=== PATIENT | female | born 1955 | race Caucasian/White ===

== ENCOUNTER 2022-03-22 22:27 | Emergency (ER) | payer MEDICARE, OTHER, SELFPAY ==
[2022-03-22 22:36] VITALS: BP 155/96; PULSE 83; RESP 18; TEMP 37.2; O2SAT 97; BMI 32.6
--- NOTE | 2022-03-22 23:45 | ED_ITS ---
HPI - General Adult General Chief complaint: Cough Stated complaint: Cough Time Seen by Provider: 03/22/22 23:36 History of Present Illness HPI narrative: This 66-year-old female comes in reporting persistent cough symptoms for the past 4 days. She did take 2 COVID tests at home and both returned with negative results. She comes in simply requesting something to help control her cough could she did not sleep much at all last night because of persistent coughing. She states that she does not tolerate some [id number] medicines for antihistamine treatment. She also states that she does not tolerate guaifenesin in Robitussin. She states she is a retired nurse. She does not report any shortness of breath or fevers. Related Data Home Medications Medication Instructions Recorded Confirmed albuterol sulfate 90 mcg/actuation inhalation 03/22/22 aerosol inhaler flecainide 50 mg tablet 50 mg PO Q12H 03/22/22 03/22/22 gabapentin 100 mg capsule 200 mg PO Q12H 03/22/22 03/22/22 lisinopril 5 mg tablet 5 mg PO DAILY 03/22/22 03/22/22 omeprazole 40 mg capsule,delayed 40 mg PO 03/22/22 release Allergies Allergy/AdvReac Type Severity Reaction Status Date / Time Antihistamines - Alkylamine Allergy Mild Hypertensio Verified 03/22/22 22:50 n Cephalosporins Allergy Mild Rash Verified 03/22/22 22:50 dial Allergy Mild Verified 03/22/22 22:50 duloxetine [From Cymbalta] Allergy Mild Rash Verified 03/22/22 22:50 Sulfa (Sulfonamide Allergy Mild purple rash Verified 03/22/22 22:50 Antibiotics) tetanus and diphtheria Allergy Mild Verified 03/22/22 22:50 toxoids Penicillins Allergy Unknown Verified 03/22/22 22:50 vicoden Allergy Mild hyperactive Uncoded 03/22/22 22:50 Review of Systems Status of ROS: Reports: 10 or more systems reviewed and unremarkable except as noted in History and below Narrative: Constitutional: No fevers, no weight gain or loss. Eyes: No discharge. No vision changes. HENT: No sore throat, no ear pain. Nasal congestion. She had some vertigo symptoms this morning. Cardiovascular: No chest pain, no palpitations. Respiratory: No shortness of breath, no wheezes. Frequent usually nonproductive cough. Gastrointestinal: No abdominal pain, no vomiting, no diarrhea. Genitourinary: No dysuria, no hematuria. Musculoskeletal: Normal range of motion. Skin: No rashes, no pruritis. Neurological: No weakness, sensory change, speech change. Endo/Heme/Allergies: No bruising or bleeding. No polydipsia. Pysch: no suicidality, no anxiety, no insomnia. All other systems reviewed and are negative. [facility] Medical History (Updated 03/22/22 @ 23:49 by Jd Crenshaw MD) Arrhythmia Fibromyalgia Gall stone GERD (gastroesophageal reflux disease) Hypertension Hypothyroid Non-Hodgkin lymphoma Social History Smoking Status: Former smoker What tobacco products do you use: cigarettes Smoking quit date/years: >15 years ago Do you use any of these nicotine containing products: None Second hand tobacco smoke exposure: No How often do you have a drink containing alcohol: 2-3 times a week How many standard drinks containing alcohol do you have on a typical day: 1 or 2 How often do you have six or more drinks on one occasion: Weekly AUDIT-C Alcohol total score: 6 Non-prescribed substance use: denies use service: No Exam Narrative: Exam Narrative: Constitutional: Well-developed, well-nourished, no acute distress. HEENT: Normocephalic, atraumatic. Neck: Normal range of motion. Nontender. Supple. Heart: Regular. No murmurs. Normal rate. Intact distal pulses. Lungs: Clear to auscultation. No chest discomfort. No wheezes, rhonchi, or rales. Frequent coughing. Abdomen: Normal bowel sounds. Nontender. No rebound tenderness. Genitalia: Deferred. Back: No midline tenderness. Normal range of motion. Extremities: Normal range of motion. No injury. Skin: Intact. No rash. Warm. No erythema or pallor. Neurologic: No altered sensation. No weakness. Alert and oriented. Psychiatric: No suicidality. No anxiety or depression. No insomnia. Nursing notes and vitals signs are reviewed. Const: Vital Signs, click to edit/add: Vital Signs - 24 hr 03/22/22 22:36 Temperature 99.0 F Pulse Rate [Right Pulse Oximeter] 83 Respiratory Rate 18 Blood Pressure [Ri ght Upper Arm] 155/96 H Pulse Oximetry 97 Oxygen Delivery Me thod Room Air Course Vital Signs Vital signs: Initial Vital Signs Temperature 99.0 F 03/22/22 22:36 Temperature Source Temporal Artery Scan 03/22/22 22:36 Pulse Rate 83 03/22/22 22:36 Respiratory Rate 18 03/22/22 22:36 Blood Pressure 155/96 H 03/22/22 22:36 Blood Pressure Mean 115 03/22/22 22:36 Blood Pressure Position Sitting 03/22/22 22:36 Pulse Oximetry 97 03/22/22 22:36 Oxygen Delivery Method 03/22/22 22:36 Vital Signs Temperature 99.0 F 03/22/22 22:36 Pulse Rate 83 03/22/22 22:36 Respiratory Rate 18 03/22/22 22:36 Blood Pressure 155/96 H 03/22/22 22:36 Pulse Oximetry 97 03/22/22 22:36 Oxygen Delivery Method 03/22/22 22:36 Temperature 99.0 F 03/22/22 22:36 Pulse Rate 83 03/22/22 22:36 Respiratory Rate 18 03/22/22 22:36 Blood Pressure 155/96 H 03/22/22 22:36 Pulse Oximetry 97 03/22/22 22:36 Oxygen Delivery Method 03/22/22 22:36 Medical Decision Making MDM Narrative Medical decision making narrative: This patient comes in seeking some better relief of her cough symptoms. She declined any need for further testing at this time. Her exam actually is rather normal as are her vital signs. She did receive [facility] prescriptions for Tylenol 3 and Toradol. Discharge Plan Discharge Clinical Impression: Acute upper respiratory infection Additional Instructions: Use medications as needed and directed. Follow up with MD or return if worsening symptoms happen. Prescriptions: No Action omeprazole 40 mg capsule,delayed release(DR/EC) 40 mg PO flecainide 50 mg tablet 50 mg PO Q12H lisinopril 5 mg tablet 5 mg PO DAILY gabapentin 100 mg capsule 200 mg PO Q12H albuterol sulfate 90 mcg/actuation HFA aerosol inhaler INHALATION Stand Alone Forms: [facility] Info Instructions
== END 2022-03-23 00:02 | disposition home or self-care (01) ==
LOC: ED 03-23 00:01
PROVIDERS: Emergency Provider Emergency Medicine Emergency Medical Services
DX: J06.9 Acute upper respiratory infection, unspecified (principal)
CPT/HCPCS: 99283; 99284

== ENCOUNTER 2022-04-01 20:18 | Emergency (ER) | payer MEDICARE, OTHER, SELFPAY ==
[2022-04-01 20:26] VITALS: BP 168/89; PULSE 89; RESP 18; TEMP 36.6; O2SAT 99; BMI 30.9
--- NOTE | 2022-04-01 20:47 | ED_ITS ---
HPI - General Adult General Chief complaint: Ear/Nose/Throat Problem Stated complaint: Sinus infection Time Seen by Provider: 04/01/22 20:22 History of Present Illness HPI narrative: Pt is a 67 year old woman who comes in with severe bilateral maxillary sinus pressure for 2 weeks duration. Pt was seen her two weeks ago and treated for bronchitis. Her cough is resolved but the sinus pressure and pharyngeal drainage persists. No fever or chills. Pt recently tested negative for COVID. No sick contacts or travel. Pt otherwise feels well. Related Data Home Medications Medication Instructions Recorded Confirmed albuterol sulfate 90 mcg/actuation inhalation 03/22/22 aerosol inhaler flecainide 50 mg tablet 50 mg PO Q12H 03/22/22 03/22/22 gabapentin 100 mg capsule 200 mg PO Q12H 03/22/22 03/22/22 lisinopril 5 mg tablet 5 mg PO DAILY 03/22/22 03/22/22 omeprazole 40 mg capsule,delayed 40 mg PO 03/22/22 release Allergies Allergy/AdvReac Type Severity Reaction Status Date / Time Antihistamines - Alkylamine Allergy Mild Hypertensio Verified 03/22/22 22:50 n Cephalosporins Allergy Mild Rash Verified 03/22/22 22:50 dial Allergy Mild Verified 03/22/22 22:50 duloxetine [From Cymbalta] Allergy Mild Rash Verified 03/22/22 22:50 Sulfa (Sulfonamide Allergy Mild purple rash Verified 03/22/22 22:50 Antibiotics) tetanus and diphtheria Allergy Mild Verified 03/22/22 22:50 toxoids Penicillins Allergy Unknown Verified 03/22/22 22:50 vicoden Allergy Mild hyperactive Uncoded 03/22/22 22:50 Review of Systems Status of ROS: Reports: 10 or more systems reviewed and unremarkable except as noted in History and below PFSH PFS Medical History Arrhythmia Fibromyalgia Gall stone GERD (gastroesophageal reflux disease) Hypertension Hypothyroid Non-Hodgkin lymphoma Surgical History No significant past surgical history Social History Smoking Status: Former smoker What tobacco products do you use: cigarettes Smoking quit date/years: >15 years ago Do you use any of these nicotine containing products: None Second hand tobacco smoke exposure: No How often do you have a drink containing alcohol: 2-3 times a week How many standard drinks containing alcohol do you have on a typical day: 1 or 2 How often do you have six or more drinks on one occasion: Weekly AUDIT-C Alcohol total score: 6 Non-prescribed substance use: denies use service: No Exam Narrative: Exam Narrative: EXAM GENERAL: Patient appears comfortable and well. EYES: No scleral icterus. ENT: Tympanic membranes and oropharynx normal. THYROID: no thyroid nodules or thyromegaly. LYMPH: No supraclavicular or cervical lymphadenopathy. SKIN: Visible skin seen during exam normal or with benign process only. EXT: No dependent lower extremity pedal edema. HEART: Regular rate and rhythm with no murmurs, rubs, or gallops. LUNGS: Clear to auscultation bilaterally with no crackles or wheezes. ABD: Soft, non tender, non distended. PSYCH: Good eye contact, speech is not pressured. Const: Vital Signs, click to edit/add: Vital Signs - 24 hr 04/01/22 20:26 04/01/22 20:26 Temperature 97.9 F 97.9 F Pulse Rate [Right Pulse Oximeter] 89 89 Respiratory Rate 18 18 Blood Pressure [Ri ght Upper Arm] 168/89 H 168/89 H Pulse Oximetry 99 99 Oxygen Delivery Me thod Room Air Room Air Course Course Hospital Course: Pt seen and examined. Vital Signs Vital signs: Initial Vital Signs Temperature 97.9 F 04/01/22 20:26 Temperature Source Temporal Artery Scan 04/01/22 20:26 Pulse Rate 89 04/01/22 20:26 Respiratory Rate 18 04/01/22 20:26 Blood Pressure 168/89 H 04/01/22 20:26 Blood Pressure Mean 115 04/01/22 20:26 Blood Pressure Position Sitting 04/01/22 20:26 Pulse Oximetry 99 04/01/22 20:26 Oxygen Delivery Method 04/01/22 20:26 Vital Signs Temperature 97.9 F 04/01/22 20:26 Pulse Rate 89 04/01/22 20:26 Respiratory Rate 18 04/01/22 20:26 Blood Pressure 168/89 H 04/01/22 20:26 Pulse Oximetry 99 04/01/22 20:26 Oxygen Delivery Method 04/01/22 20:26 Temperature 97.9 F 04/01/22 20:26 Pulse Rate 89 04/01/22 20:26 Respiratory Rate 18 04/01/22 20:26 Blood Pressure 168/89 H 04/01/22 20:26 Pulse Oximetry 99 04/01/22 20:26 Oxygen Delivery Method 04/01/22 20:26 Medical Decision Making MDM Narrative Medical decision making narrative: Pt presents with classic sinusitis. She does have medical comorbidities which are reviewed. Pt has done well with a Z pack in the past and would like that again. No other findings on exam. Pt treated with Z pack plus Nedipot. Differential Diagnosis Differential Diagnosis: Sinusitis, Bronchitis, Pneumonia, Asthma Discharge Plan Discharge Clinical Impression: Sinusitis Patient Disposition: Home, Self-Care Condition: Stable Additional Instructions: Z pack Nedi pot as directed Follow up with your doctor as needed Activity Level: No Restrictions Discharge Diet: Regular Prescriptions: No Action omeprazole 40 mg capsule,delayed release(DR/EC) 40 mg PO flecainide 50 mg tablet 50 mg PO Q12H lisinopril 5 mg tablet 5 mg PO DAILY gabapentin 100 mg capsule 200 mg PO Q12H albuterol sulfate 90 mcg/actuation HFA aerosol inhaler INHALATION Follow Up/Referrals: Provider,Not a Local [Primary Care Provider] - Stand Alone Forms: [facility] Info Instructions
--- OUTSIDE RECORDS SUMMARY | 2022-04-01 20:51 | XMS_ITS | Encounter Summary ---
:1955 Author Organization [facility] Address [address] [place] [address] Care Team Providers Name Role Phone Elsewhere, Pcp Primary Care Provider Unavailable Encounter Details Date Type Department Care Team Description 03/26/2021 Orders Only [facility] Brandon [place] M.D. [phone] [place] [address] [phone] (Wo rk) Social History Tobacco Use Types Packs/Day Years Used Date Smoking Tobacco: Never Smokeless Tobacco: Never Alcohol Use Standard Drinks/Week Comments Not Currently 0 (1 standard drink = 0.6 oz pure alcoho l) Sex Assigned at Date Recorded Not on file documented as of this encounter Plan of Treatment Not on filedocumented as of this encounter Visit Diagnoses Not on filedocumented in this encounter Care Teams Head Men'S Golf Coach Relationship Specialty Start Date End Date Elsewhere, Pcp PCP - General Family Medicine 01/09/21 documented as of this encounter
--- OUTSIDE RECORDS SUMMARY | 2022-04-01 20:51 | XMS_ITS | Encounter Summary ---
:1955 Author Organization [facility] Address [address] [place] [address] Care Team Providers Name Role Phone Elsewhere, Pcp Primary Care Provider Unavailable Encounter Details Date Type Department Care Team Description 03/01/2022 Orders Only [facility] Mary Owen [place] M.D. [address] [id number] [phone] Social History Tobacco Use Types Packs/Day Years [...] on filedocumented in this encounter Care Teams Implementation Services Analyst Relationship Specialty Start Date End Date Elsewhere, Pcp PCP - General Family Medicine 01/09/21 documented as of this encounter
--- OUTSIDE RECORDS SUMMARY | 2022-04-01 20:51 | XMS_ITS | Clinical Summary ---
:1955 Author Organization [facility] Address [address] [place] [address] Care Team Providers Name Role Phone Elsewhere, Pcp Primary Care Provider Unavailable Source Comments Patient records contain information from all sites at [facility]. For routine questions regarding patient records, call [phone] during business hours, M-F 8:00 AM - 5:00 PM Central Time. Record requests for emergency care only can be directed to [phone] at any time.[facility] Allergies Active Allergy Reactions Severity Noted Date Comments Diphenhydramine Hcl Other (see comments) 01/06/2021 Hypersensitive. Increases heart rate Calcium Channel Blocking Other (see comments) 01/07/20 21 Increases blood Agent Diltiazem Analogues pr essure Ciprofloxacin Hives 01/06/2021 Duloxetine Hives 01/06/2021 Penicillins Hives 01/06/2021 Sulfa (Sulfonamide Hives 01/06/2021 Antibiotics) Tetracycline Hives 01/06/2021 Hydrocodone-Acetaminophen Other (see comments) 021 Increases blood pressure Medications Medication Sig Dispensed Refills Start Date End Date Status lisinopriL Take 5 mg by mouth 0 Active (PRINIVIL,ZESTRIL) 5 2 (two) times a mg tablet day. flecainide (TAMBOCOR) Take 50 mg by 0 Active 50 mg tablet mouth every 12 (twelve) hours. omeprazole (PriLOSEC) Take 20 mg by [address] capsule mouth every morning before breakfast. gabapentin Take 300 mg by 0 Acti ve (NEURONTIN) 300 mg mouth at bedtime. capsule cholecalciferol Take 2,000 mcg by 0 Active (Vitamin D3) 50 mcg mouth daily. (2,000 Unit) tablet multivitamin capsule Take 1 capsule by 0 Active mouth daily. levothyroxine Take by mouth. 0 10/24/2018 Active (Synthroid) 75 mcg tablet omega [id number]-tia-fish Take by mouth. 0 02/11/2016 Active oil 1,200 (144-216) mg capsule coenzyme Q10 200 Take by mouth. 0 10/29/2020 Active mg/gram powder calcium citrate 250 Take 500 mg by 0 10/29/2020 Active mg calcium tablet mouth. verapamiL (VERELAN Take 100 mg by 0 03/22/2021 Active PM) 100 mg 24 hr mouth daily. capsule meclizine (ANTIVERT) TAKE 1 TABLET BY 30 tablet 0 11/26/2021 0 Active 12.5 mg tablet MOUTH THREE TIMES 3 A DAY IF NEEDED FOR VERTIGO lisinopriL Take 1 tablet (5 90 tablet 1 03/01/2022 A ctive (PRINIVIL,ZESTRIL) 5 mg total) by mouth mg tablet every evening. flecainide (TAMBOCOR) TAKE 1 TABLET BY 60 tablet 0 02/14/2022 Active 50 mg tablet MOUTH TWO TIMES A 3 DAY 12 HOURS APART phenazopyridine TAKE 2 TABLETS BY 30 tablet 0 02/04/2022 02/04 Active (PYRIDIUM) 100 mg MOUTH THREE TIMES 3 tablet A DAY NEEDED FOR PAIN omeprazole (PriLOSEC) TAKE 1 CAPSULE BY 90 capsule [address] capsule MOUTH DAILY BEFORE 3 A MEAL OR AT BEDTIME desonide (DESOWEN) APPLY TOPICALLY TO 60 g 1 11/10/2021 0 Active 0.05 % ointment EYELIDS TWO TIMES 3 A DAY DURING FLARES. TAPER WITH IMPROVEMENT. polyethylene MIX DIRECTED 4000 mL 0 10/28/2021 Active glycol-electrolytes AND FOLLOW THE 3 (Nnamdi) INSTRUCTIONS FROM [id number] -5.86 YOUR PROVIDER. gram solution ketorolac (TORADOL) TAKE 1 TABLET BY 10 tablet 0 08/12/2021 Active 10 mg tablet MOUTH EVERY SIX 3 HOURS NEEDED FOR PAIN; DO NOT EXCEED 4 TABLETS IN TWENTY-FOUR HOURS albuterol 90 INHALE 2 PUFFS BY 6.7 g 0 06/30/2021 02 Active mcg/actuation inhaler MOUTH EVERY FOUR 3 HOURS NEEDED FOR SHORTNESS OF BREATH, FIRST CHOICE FOR COUGH AND SECOND CHOICE FOR WHEEZING azithromycin TAKE 2 TABLETS BY 6 tablet 0 06/30/2021 02 Active (ZITHROMAX) 250 mg MOUTH ON DAY 1, 3 tablet THEN TAKE 1 TABLET DAILY ON DAYS 2 THROUGH 5. TAKE MEDICATION FOR 5 DAYS. verapamiL (VERELAN) TAKE 1 CAPSULE BY 90 capsule 3 03/26/2021 Active 120 mg 24 hr capsule MOUTH EVERY MORNING gabapentin TAKE 4 TO 6 540 capsule 3 04/21/2021 Acti ve (NEURONTIN) 100 mg CAPSULES BY MOUTH 2 capsule EVERY NIGHT AT BEDTIME verapamiL (VERELAN TAKE 1 CAPSULE BY 90 capsule 0 03/19/2021 Active PM) 100 mg 24 hr MOUTH AT BEDTIME capsule flecainide (TAMBOCOR) TAKE 1 TABLET BY 180 tablet 2 10/29/2020 Active 50 mg tablet MOUTH EVERY 12 HOURS flecainide (TAMBOCOR) Take 1 tablet (50 180 tablet 3 2 Active 50 mg tablet mg total) by mouth every 12 (twelve) hours. 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 Formatting of this note might be differe nt from the original. Patient trying lifestyle modification Formatting of this note might be differe nt from the original. Patient declines statin therapy. Formatting of this note might be differe nt from the original. Patient trying lifestyle modification Formatting of this note might be differe nt from the original. Patient declines statin therapy. Gastroesophageal Reflux Disease NOS 12/02/2009 Lymphoma Non Hodgkins Personal History 11/02/2006 Overview: Formatting of this note might be differe nt from the original. Formatting of this note might be differe nt from the original. Diagnosed 2004 with lesion in her left s [facility]. Diffuse large B-cell lymphoma, stage 1A Treated with CHOP/Rituxan and local radi ation Completed chemotherapy 07/2005 Dr. Voss - remains in remission, pain in left arm thought potentially due to changes from chemoradiation 10/2013 Formatting of this note might be differe nt from the original. Diagnosed 2004 with lesion in her left s [place]. Diffuse large B-cell lymphoma, stage 1A Treated with CHOP/Rituxan and local radi ation Completed chemotherapy 07/2005 Dr. Voss - remains in remission, pain in left arm thought potentially due to changes from chemoradiation 10/2013 Encounters Date Type Specialty Care Team Description 03/01/2022 Orders Only Pharmacy Mary Owen M.D. 02/14/2022 Orders Only Pharmacy Salvatore Cuellar M.D. 02/04/2022 Orders Only Pharmacy Mary Owen M.D. from Last 3 Months Immunizations Name Administration Dates Next Due influenza vaccine quad (FLUZONE/FLUARIX) (6 months and 05/31 older)(PF) Social History Tobacco Use Types Packs/Day Years Used Date Smoking Tobacco: Never Smokeless Tobacco: Never Alcohol Use Standard Drinks/Week Comments Not Currently 0 (1 standard drink = 0.6 oz pure alcoho l) Sex Assigned at Date Recorded Not on file Last Filed Vital Signs Vital Sign Reading Time Taken Comments Blood Pressure 168/102 03/25/2021 11:45 PM CDT Pulse 77 03/26/2021 12:00 AM CDT Temperature 36.7 ??C (98.1 ??F) 01/09/2021 9:07 PM CDT Respiratory Rate 18 03/26/2021 12:00 AM CDT Oxygen Saturation 98% 03/26/2021 12:00 AM CDT Inhaled Oxygen Concentration - - Weight 85.6 kg (188 lb 11.4 oz) 03/25/2021 10:46 PM CDT Height 161.2 cm (5' 3.47) 01/09/2021 9:04 PM CDT Body Mass Index 32.94 01/09/2021 9:04 PM CDT Plan of Treatment Health Maintenance Due Date Last Done Comments Bone Density Scan (Osteoporosis 1955 Screen) CT Colonography 1955 Cologuard 1955 Colonoscopy 1955 Colorectal Cancer Screening 1955 FIT 1955 Hepatitis C Screening 1955 Mammogram 1955 Office Visit for Blood Pressure 1955 Check / Re-check Zoster Vaccines (1 of 2) 2004 DTaP,Tdap,and Td Vaccines (2 - Td 11/26/2018 11/26/2008 or Tdap) Lipid (Cholesterol) Screening 06/28/2020 06/28/2019, 2018, 04/25/2018 COVID-19 Vaccine (3 - Booster for 11/24/2020 09/29/2020, Moderna series) Depression Screening (Annual 06/26/2021 PHQ-2) Fall Risk Screen (Annual) 06/26/2021 Creatinine Level 03/25/2022 03/25/2021, 01/09/2021, 12/02/2020, Additional history exists Potassium Level 03/25/2022 03/25/2021, 01/09/2021, 12/02/2020, Additional history exists Sodium Level 03/25/2022 03/25/2021, 01/09/2021, 12/02/2020, Additional history exists Influenza Vaccine (#1) 2022 05/31/2021, 04/21/2020, 04/21/2020, Additional history exists Thyroid Stimulating Hormone (TSH) 11/08/2022 11/08/2021, , test for thyroid function 07/29/2020, Additional history exists Fasting Glucose for Diabetes 03/25/2024 03/25/2021, 021, Screening 12/02/2020, Additional history exists Pneumococcal vaccine (65+ years) Completed 07/29/2020, 08/2019, 04/12/2005 Insurance Payer Benefit Plan / Subscriber ID Effective Phone Address T ype Group Dates MEDICARE MEDICARE A AND [id number] 2019-Pres [address] [place] [address] MEDICA MEDICA PRIME [id number] 2020-Prese [phone] [address] [place] [address] Care Teams Pot Runner Relationship Specialty Start Date End Date Elsewhere, Pcp PCP - General Family Medicine 01/09/21
--- OUTSIDE RECORDS SUMMARY | 2022-04-01 20:51 | XMS_ITS | Encounter Summary ---
:1955 Author Organization [facility] Address [address] [place] [address] Care Team Providers Name Role Phone Elsewhere, Pcp Primary Care Provider Unavailable Encounter Details Date Type Department Care Team Description 08/14/2021 Orders Only [facility] Kenia Georges [place] C.Ph.T. [address] [facility] [place] [id number] Social History Tobacco Use Types Packs/Day Years [...] on filedocumented in this encounter Care Teams Scale Operator Relationship Specialty Start Date End Date Elsewhere, Pcp PCP - General Family Medicine 01/09/21 documented as of this encounter
--- OUTSIDE RECORDS SUMMARY | 2022-04-01 20:51 | XMS_ITS | Encounter Summary ---
:1955 Author Organization [facility] Address [address] [place] [address] Care Team Providers Name Role Phone Elsewhere, Pcp Primary Care Provider Unavailable Encounter Details Date Type Department Care Team Description 05/31/2021 Immunization Department of [facility] Elaine Gonzalez M.D. Medicine, [place] [address] [facility], in [facility] [id number] [place] [address] [place], [place] [phone] Social History Tobacco Use Types Packs/Day Years [...] on filedocumented in this encounter Care Teams Embroidery Worker Relationship Specialty Start Date End Date Elsewhere, Pcp PCP - General Family Medicine 01/09/21 documented as of this encounter
--- OUTSIDE RECORDS SUMMARY | 2022-04-01 20:51 | XMS_ITS | Encounter Summary ---
:1955 Author Organization [facility] Address [address] [place] [address] Care Team Providers Name Role Phone Elsewhere, Pcp Primary Care Provider Unavailable Encounter Details Date Type Department Care Team Description 10/29/2020 Orders Only [facility] Mary Owen [place] M.D. [address] [id number] [phone] Social History Tobacco Use Types Packs/Day Years Used Date Smoking Tobacco: Never Assessed Sex Assigned at Date Recorded Not on file documented as of this encounter Plan of Treatment Not on filedocumented as of this encounter Visit Diagnoses Not on filedocumented in this encounter Care Teams Manager Agriculture Relationship Specialty Start Date End Date Elsewhere, Pcp PCP - General Family Medicine 01/09/21 documented as of this encounter
--- OUTSIDE RECORDS SUMMARY | 2022-04-01 20:51 | XMS_ITS | Encounter Summary ---
:1955 Author Organization [facility] Address [address] [place] [address] Care Team Providers Name Role Phone Elsewhere, Pcp Primary Care Provider Unavailable Encounter Details Date Type Department Care Team Description 08/12/2021 Orders Only [facility] Mary Owen [place] M.D. [address] [phone] Social History Tobacco Use Types Packs/Day Years [...] on filedocumented in this encounter Care Teams Pipe Fitter [employer] Relationship Specialty Start Date End Date Elsewhere, Pcp PCP - General Family Medicine 01/09/21 documented as of this encounter
--- OUTSIDE RECORDS SUMMARY | 2022-04-01 20:51 | XMS_ITS | Encounter Summary ---
:1955 Author Organization [facility] Address [address] [place] [address] Care Team Providers Name Role Phone Elsewhere, Pcp Primary Care Provider Unavailable Encounter Details Date Type Department Care Team Description 01/06/2021 Orders Only [facility] Piero Moy, Department P.A.-C. [address] [place] [address] [place], [place] [phone] [place] [address] (Wo rk) Social History Tobacco Use Types Packs/Day Years Used Date Smoking Tobacco: Never Smokeless Tobacco: Never Sex Assigned at Date Recorded Not on file documented as of this encounter Plan of Treatment Not on filedocumented as of this encounter Visit Diagnoses Not on filedocumented in this encounter Care Teams Metal Filer Relationship Specialty Start Date End Date Elsewhere, Pcp PCP - General Family Medicine 01/09/21 documented as of this encounter
--- OUTSIDE RECORDS SUMMARY | 2022-04-01 20:51 | XMS_ITS | Encounter Summary ---
:1955 Author Organization [facility] Address [address] [place] [address] Care Team Providers Name Role Phone Elsewhere, Pcp Primary Care Provider Unavailable Encounter Details Date Type Department Care Team Description 02/04/2022 Orders Only [facility] Mary Owen [place] M.D. [address] [phone] Social History Tobacco Use Types Packs/Day Years [...] on filedocumented in this encounter Care Teams Venetian Blind Cleaner Relationship Specialty Start Date End Date Elsewhere, Pcp PCP - General Family Medicine 01/09/21 documented as of this encounter
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
--- OUTSIDE RECORDS SUMMARY | 2022-04-01 20:51 | XMS_ITS | Encounter Summary ---
:1955 Author Organization [facility] Address [address] [place] [address] Care Team Providers Name Role Phone Elsewhere, Pcp Primary Care Provider Unavailable Encounter Details Date Type Department Care Team Description 11/10/2021 Orders Only [facility] Ita [place] M.D. [address] [place] [phone] Social History Tobacco Use Types Packs/Day Years [...] on filedocumented in this encounter Care Teams Green Energy Marketing Analyst Relationship Specialty Start Date End Date Elsewhere, Pcp PCP - General Family Medicine 01/09/21 documented as of this encounter
--- OUTSIDE RECORDS SUMMARY | 2022-04-01 20:51 | XMS_ITS | Encounter Summary ---
:1955 Author Organization [facility] Address [address] [place] [address] Care Team Providers Name Role Phone Elsewhere, Pcp Primary Care Provider Unavailable Reason for Visit Reason Comments Chest Pain Encounter Details Date Type Department Care Team Description 01/09/2021 - Emergency [facility] Simona Martin P ain Chest (Primary 01/10/2021 Emergency Department MJonel., M.S. Dx) [address] [place] [address] [address] [place] [phone] Social History Tobacco Use Types Packs/Day Years Used Date Smoking Tobacco: Never Smokeless Tobacco: Never Alcohol Use Standard Drinks/Week Comments Yes 0 (1 standard drink = 0.6 oz pure alcoho l) occassional Alcohol Habits Answer Date Recorded How often do you have a drink containing alcohol? Not asked How many drinks containing alcohol do you have on a typical Not asked day when you are drinking? How often do you have six or more drinks on one occasion? No t asked Comment: occassional 01/09/2021 Sex Assigned at Date Recorded Not on file documented as of this encounter Last Filed Vital Signs Vital Sign Reading Time Taken Comments Blood Pressure 144/94 01/10/2021 12:15 AM CDT Pulse 65 01/10/2021 12:15 AM CDT Temperature 36.7 ??C (98.1 ??F) 01/09/2021 9:07 PM CDT Respiratory Rate 11 01/10/2021 12:15 AM CDT Oxygen Saturation 97% 01/10/2021 12:15 AM CDT Inhaled Oxygen Concentration - - Weight 86.1 kg (189 lb 13.1 oz) 01/09/2021 9:04 PM CDT Height 161.2 cm (5' 3.47) 01/09/2021 9:04 PM CDT Body Mass Index 33.13 01/09/2021 9:04 PM CDT documented in this encounter Discharge Instructions Discharge InstructionsAman Chaves Cand.Med. - 01/10/2021 12:49 AM CDT You were seen in the ER tonight for chest pain. Your blood work and ECG are reassuring. We think your symptoms might be related to gastritis or inflammation in your stomach. Please take your Prilosec twice daily for the next week to see if your symptoms improve. Return to the ED for increased pain, light headedness, vomiting, difficulty breathing, or any other concerns. AttachmentsThe following attachments cannot be sent through Care Everywhere. Nonspecific Chest Pain Adult Ljnz-[id number] ([place]izen [place])Gastritis Adult ([place]izen [place]) documented in this encounter Medications at Time of Discharge Medication Sig Dispensed Refills Start Date End Date calcium citrate 250 mg Take 500 mg by 0 1 calcium tablet mouth. cholecalciferol (Vitamin Take 2,000 mcg by 0 D3) 50 mcg (2,000 Unit) mouth daily. tablet coenzyme Q10 200 mg/gram Take by mouth. 0 021 powder flecainide (TAMBOCOR) 50 Take 50 mg by 0 mg tablet mouth every 12 (twelve) hours. gabapentin (NEURONTIN) 300 Take 300 mg by 0 mg capsule mouth at bedtime. levothyroxine (Synthroid) Take by mouth. 0 2018 75 mcg tablet lisinopriL Take 5 mg by mouth 0 (PRINIVIL,ZESTRIL) 5 mg 2 (two) times a tablet day. multivitamin capsule Take 1 capsule by 0 mouth daily. omega 3-cqt-mmp-fish oil Take by mouth. 0 016 1,200 (144-216) mg capsule omeprazole (PriLOSEC) 20 Take 20 mg [address] capsule mouth every morning before breakfast. flecainide (TAMBOCOR) 50 TAKE 1 TABLET BY 180 tablet 2 10/29 mg tablet MOUTH EVERY 12 HOURS predniSONE (DELTASONE) 20 TAKE 1 TABLET BY 5 tablet 0 12/2401/06/2022 mg tablet MOUTH DAILY FOR 5 DAYS documented as of this encounter ED Notes Simona Martin M.D., M.S. - 01/10/2021 12:23 AM CDT I have personally seen and examined this patient. I have fully participated in the care of this patient. I have reviewed all clinical information including history, physical exam, orders, and plan. I agree with the note of the resident. 65-year-old female with history of hypertension, GERD, hyperlipidemia presents to the ED for evaluation of chest pain. Patient woke with pain yesterday; seemed to eventually improve after taking her morning dose of Prilosec. States she went to a family reunion and ate a large meal and the pain returned around 3:00 p.m.. She describes it as constant right-sided. No shortness of breath. No fevers, chills. Patient given GI cocktail while awaiting evaluation with some improvement in symptoms. Of note, she recently has been on oral steroids for scalp puritis. On exam, appears well. Hemodynamically stable, afebrile. Given duration of pain, I think one troponin appropriate to rule out ACS. ECG reassuring. Chest x-ray nondiagnostic. Doubt PE, dissection. No infectious symptoms to suggest pneumonia as the cause of her pain. I suspect her symptoms have a GI component to them. Discussed anticipated course, reasons to return to the ED, and importance of follow-up. Advised to start taking her Prilosec b.i.d.. Patient understands discharge plan, reasons to return. Final Diagnoses: as of Jan 12 236 Pain Chest Simona Martin M.D., M.S. 01/11/21 0241 NAT Aman Chaves, Cand.Med. - 01/09/2021 11:14 PM CDT SUBJECTIVE CHIEF COMPLAINT/REASON FOR VISIT Chest Pain HISTORY OF PRESENT ILLNESS 65-year-old female with history of hypertension and SVT and PVCs on flecainide presenting to the emergency department with chest pain. Her pain woke her up from sleep to a.m. yesterday. The pain then subsided and came back at 3:00 p.m. today and has been persistent since then. The pain is about 5/10,burning in character, located in the lower chest just to the right of the sternum. Patient is able to pinpoint the pain with 1 finger. Pain is not pleuritic and not exertional. She did receive a GI cocktail at intake with some relief. She has had her gallbladder removed. She denies any excessive alcohol use. She does not feel short of breath. No unilateral leg pain or swelling. No history of DVT or PE. No history of cancer or recent immobilization. She states that her blood pressure is always labileand she has not taken her evening dose of antihypertensives this evening. She was seen in the ED in [place] 3 days ago for scalp pruritus. She was given short course of prednisone and her pruritus has subsided. She also had lumbar epidural injection for back pain/sciatica few days ago. Denies any fever, new or worsening back pain, urinary retention or weakness in the legs. Patient has history of hypertension but does not smoke cigarettes and did have CT angiogram of the coronary arteries on 09/18/2018 that showed no evidence of atherosclerotic disease. REVIEW OF SYSTEMS Constitutional: Negative for fever. HENT: Negative for sore throat. Eyes: Negative for visual disturbance. Respiratory: Negative for cough and shortness of breath. Cardiovascular: Positive for chest pain. Negative for leg swelling. Gastrointestinal: Negative for vomiting. Genitourinary: Negative for dysuria. Musculoskeletal: Negative for joint swelling. Skin: Positive for itching (Resolved). Negative for rash. Allergic/Immunologic: Negative for immunocompromised state. Neurological: Negative for headaches. OBJECTIVE Initial Vitals Temperature Pulse Rate Heart Rate Resp Rate Blood Pressure SpO2 01/09/21210601/09/212106 -- 01/09/21210601/09/21210601/09/212106 36.7 ??C 69 18 (!) 185/95 99 % Pain Score 01/09/212107 5 - Moderate pain PHYSICAL EXAMINATION Constitutional: Nursing note and vitals reviewed. She is cooperative. HENT: Right Ear: External ear normal. Left Ear: External ear normal. Eyes: Conjunctivae are normal. Pupils are equal, round, and reactive to light. Cardiovascular: Regular rhythm and normal heart sounds. Pulses are strong. Capillary refill: takes less than 3 seconds, Strong pulses in all extremities. Pulmonary/Chest: Effort normal and breath sounds normal. Abdominal: Soft. There is no abdominal tenderness. Musculoskeletal: General: No edema (No lower extremity edema). Cervical back: Normal range of motion. Comments: No tenderness to percussion over the spine. No erythema over the lumbar back. Normal strength in all extremities. Neurological: Alert. She is not disoriented. Skin: Skin is warm and dry. Psychiatric: Behavior is normal. ASSESSMENT/PLAN The patient is a 65 year old female with history of hypertension, SVT and PVCs who present with chest pain concerning for acute coronary syndrome, pneumothorax, GERD or other acute pathology. Her vitalsigns are unremarkable except for elevated blood pressure. I reviewed notes from her most recent ED v isit and CT angiogram coronary arteries from 2019. She received aspirin 325 mg loading dose on arrival. She received GI cocktail with some improvement in her symptoms. My interpretation of the ECG is normal sinus rhythm 70 beats per minute, normal intervals, narrow QRS, normal axis. No ST changes or T-wave inversions.. I have reviewed the laboratory results which show normal troponin, normal CBC, creatinine and electrolytes. BUN is slightly elevated. I also reviewedimaging my self as well as the radiologist report and her chest x-ray is normal. Since her pain has been persistent for over 6 hours I do not think that we need repeat troponin level. She did have normal CT coronary angiogram in 2019. There is nothing in her history or physical exam that suggest pulmonary embolism or aortic dissection. I think that her chest pain is most likely from gastroesophageal reflux disorder and that was possibly exacerbated by recent glucocorticoids. I recommended that she would continue omeprazole and increase the frequency to twice daily for 1 week and follow up with her primary care provider for persistent symptoms since she might need to have EGD if she continues to have symptoms of acid reflux. Provided instructions on symptoms that should prompt return to the emergency department. ED Course as of Jan 10 0005 Sat Jan 09, 2021 2313 Troponin T, Baseline, 5th gen: <6 3 IMPRESSION: Negative chest. DX Chest AP or PA and Lateral 2 Views 2313 IMPRESSION: Normal sinus rhythm Normal ECG No previous ECGs available ECG 12 Lead Final Diagnoses: as of Jan 10 0005 Pain Chest Aman Chaves Cand.Med. Resident 01/10/21 0049 Aman Chaves Cand.Med. Resident 01/10/21 0051 Gricelda Bethea R.N. - 01/09/2021 9:09 PM CDT Pt complains of burning chest pain that started last night. She states it feels worse than her normal GERD and occasionally radiates to her back. She also complains of palpitations. She adds that she recently started on prednisone. Gricelda Bethea R.N. 01/09/212111 documented in this encounter Plan of Treatment Not on filedocumented as of this encounter Procedures Procedure Name Priority Date/Time Associated Comments Diagnosis DX CHEST AP OR PA RAD - Semiurgent 01/09/2021 10:08 Re sults for this AND LATERAL 2 (Fast; most ED PM CDT procedure ar e in VIEWS patients; some the results inpatients) section. TROPONIN T, STAT 01/09/2021 9:29 Results for this BASELINE, 5TH PM CDT procedure are in GEN, P the results section. CBC WITH STAT 01/09/2021 9:29 Results for this DIFFERENTIAL, B PM CDT procedure ar e in the results section. BASIC METABOLIC STAT 01/09/2021 9:29 Results f or this PANEL, S/P PM CDT procedure are i n the results section. ECG STAT 01/09/2021 9:14 Results for this PM CDT procedure are i n the results section. documented in this encounter Results DX Chest AP or PA and Lateral 2 Views (01/09/2021 10:08 PM CDT) Anatomical Region Laterality Modality Chest, Thoracic RST LOS, Thoracic ARZ LOS, Thoracic N/A Digital Radiography FLA LOS Specimen (Source) Anatomical Collection Method Collection Time Re ceived Time Location / / Volume Laterality 01/09/2021 10:24 PM CDT Impressions 01/10/2021 11:13 AM CDT Calcified mildly tortuous aorta. Abdominal surgical clips. Tendinous calcifications left shoulder. Chest otherwise negative. Narrative 01/10/2021 11:13 AM CDT EXAM: ??DX CHEST AP OR PA AND LATERAL 2 VIEWS Procedure Note Isabel Harman M.D. - 01/10/2021Fo rmatting of this note might be different from the original. EXAM: DX CHEST AP OR PA AND LATERAL 2 EWS IMPRESSION: Calcified mildly tortuous aorta. Abdomin al surgical clips. Tendinous calcifications left shoulder. Chest otherwise negative. Simona Martin M.D., M.S. IMG DIAGNOSTIC IMAGING PRO CEDURES Troponin T, Baseline, 5th gen (01/09/2021 9:29 PM CDT) athologist Signature Troponin T, <6 <=10 ng/L 01/09/2021 [facility] Baseline, 5th 9:54 PM CDT gen Specimen Anatomical Collection Method Collection Time Receive d Time (Source) Location / / Volume Laterality Blood (Blood, 01/09/2021 9:29 PM 01/10/20 21 9:34 Venous) CDT PM CDT Simona Martin M.D., M.S. LAB BLOOD TROPONIN Performing Organization Address City/State/ZIP Code Phon e Number [facility] - [address] [place] [address] [address] [place] [address] [facility] [address] [facility] (ABNORMAL) CBC with Differential, Blood (01/09/2021 9:29 PM CDT) [facility] Method Time Signature Hemoglobin 13.6 11.6 - 01/09/2021 [facility] 15.0 g/dL 9:38 PM CDT Hematocrit 40.8 35.5 - 01/09/2021 [facility] 44.9 % 9:38 PM CDT Erythrocytes 4.59 3.92 - 01/09/2021 [facility] 5.13 9:38 PM CDT x10(12)/L MCV 88.9 78.2 - 01/09/2021 [facility] 97.9 fL 9:38 PM CDT RBC Distrib Width 12.5 12.2 - 01/09/2021 [facility] 16.1 % 9:38 PM CDT Platelet Count 250 157 - 371 01/09/2021 [facility] x10(9)/L 9:38 PM CDT Leukocytes 9.6 3.4 - 9.6 01/09/2021 [facility] x10(9)/L 9:38 PM CDT Neutrophils 4.26 1.56 - 01/09/2021 [facility] 6.45 9:38 PM CDT x10(9)/L Lymphocytes 4.48 (H) 0.95 - 01/09/2021 [facility] 3.07 9:38 PM CDT x10(9)/L Monocytes 0.56 0.26 - 01/09/2021 [facility] 0.81 9:38 PM CDT x10(9)/L Eosinophils 0.21 0.03 - 01/09/2021 [facility] 0.48 9:38 PM CDT x10(9)/L Basophils 0.05 0.01 - 01/09/2021 [facility] 0.08 9:38 PM CDT x10(9)/L Specimen Anatomical Collection Method Collection Time Receive d Time (Source) Location / / Volume Laterality Blood (Blood, 01/09/2021 9:29 PM 01/10/20 9:34 Venous) CDT PM CDT Simona Martin M.D., M.S. LAB BLOOD ADD-ON Performing Organization Address City/State/[facility] Code Phon e Number [facility] - [address] [place] [address] [address] [facility] [place] [address] [facility] [address] [facility] (ABNORMAL) Basic Metabolic Panel (01/09/2021 9:29 PM CDT) P athologist Signature Potassium, P 3.9 3.6 - 5.2 01/09/2021 [facility] mmol/L 9:52 PM CDT Sodium, P 137 135 - 145 01/09/2021 [facility] mmol/L 9:52 PM CDT Chloride, P 100 98 - 107 01/09/2021 [facility] mmol/L 9:52 PM CDT Bicarbonate, P 27 22 - 29 01/09/2021 [facility] mmol/L 9:52 PM CDT Anion Gap, P 10 7 - 15 01/09/2021 [facility] 9:52 PM CDT BUN (Blood Urea 24 (H) 6 - 21 01/09/2021 [facility] Nitrogen), P mg/dL 9:52 PM CDT Creatinine 0.99 0.59 - 01/09/2021 [facility] 1.04 mg/dL 9:52 PM CDT eGFR-Black/Afri 69 >=60 01/09/2021 [facility] can Bulgarian mL/min/BSA 9:52 PM CDT Comment: ----ADDITIONAL INFORMATION---- Estimated GFR calculated using the 2009 CKD_EPI creatinine equation. eGFR Non-Black/ 60 >=60 mL/min/BSA 9:52 PM CDT [facility] Comment: ----ADDITIONAL INFORMATION---- Estimated GFR calculated using the 2009 CKD_EPI creatinine equation. Calcium, Total, P 9.6 8.8 - 10.2 mg/dL 01/09/2021 9:52 PM CDT [facility] Glucose, P 115 70 - 140 mg/dL 01/09/2021 9:52 PM CDT S [facility] Specimen Anatomical Collection Method Collection Time Receive d Time (Source) Location / / Volume Laterality Blood (Blood, 01/09/2021 9:29 PM 01/10/20 9:34 Venous) CDT PM CDT Simona Martin M.D., M.S. LAB BLOOD ADD-ON Performing Organization Address City/State/ZIP Code Phon e Number [facility] - [address] [place], [place] [address] [address] [place] [address] [facility] 200 [facility] [address] ECG 12 Lead (01/09/2021 9:14 PM CDT) P athologist Signature Ventricular Rate 71 BPM MUSE ECG/Min NV Interval 184 ms MUSE QRSD Interval 76 ms MUSE QT Interval 410 ms MUSE QTC Interval 445 ms MUSE P [place] 38 degrees MUSE R [place] 12 degrees MUSE T Wave [place] 69 degrees MUSE Specimen Anatomical Collection Method Collection Time Receive d Time (Source) Location / / Volume Laterality 01/09/2021 9:14 PM 8:26 CDT AM CDT Impressions MUSE - 01/09/2021 9:21 PM CDT Normal sinus rhythm Nonspecific T wave abnormality No previous ECGs available Reviewed by ABBEY Sarkar Narrative This result has an attachment that is no t available. Procedure Note Cheko Champion M.D. - 01/11/2021Formatt ing of this note might be different from the original. IMPRESSION: Normal sinus rhythm Nonspecific T wave abnormality No previous ECGs available Reviewed by ABBEY Sarkar Simona Martin M.D., M.S. ECG ORDERABLES Performing Organization Address City/State/ZIP Code Phon e Number [facility] MUSE NA documented in this encounter Visit Diagnoses Diagnosis Pain Chest - Primary documented in this encounter Administered Medications Inactive Administered Medications - up to 3 most recent administrations Medication Order MAR Action Action Date Dose Rate Site aspirin chewable tablet 324 mg Given 01/09/2021 9:18 PM CDT 324 mg 324 mg, oral, Once as needed, other, chest pain; if not given within 4 hours, Starting on 01/09/21 at 2112, For 1 dose lidocaine viscous 2 % 15 mL, alum-mag Given 01/09/2021 9:40 PM C DT 45 mL hydroxide-simeth 30 mL suspension 45 mL, oral, Once, On 01/09/21 at 2128, For 1 dose, Mix ingredients prior to administration sodium chloride 0.9 % injection 10 mL 10 mL, intravenous, As needed, line care, Starting on 01/09/21 at 3, Peripheral Intravenous Catheter and Rapid Infusion Cat heter, prior to blood sampling, post blood transfusion or post blood samplin g sodium chloride 0.9 % injection 3 mL 3 mL, intravenous, As needed, line care, Starting on 01/09/21 at 2112, Prior to and following infusion and between multi ple consecutive infusions: sodium chloride 0.9 % injection sodium chloride 0.9 % injection 3 mL 3 mL, intravenous, Every 12 hours scheduled, First dos e on 01/10/21 at 0900, Peripheral Intravenous Catheter and Rapi d Infusion Catheter, when no infusion to maintain patency documented in this encounter Active and Recently Administered Medications Times are shown in CDT. Scheduled Medication Order 01/08/2021 01/09/2021 01/10/2021 lidocaine viscous 2 % 15 mL, alum-mag hy droxide-simeth 30 mL suspension (COMPLETED) 2139 (Given - Provider: Gricelda Bethea R.N.) 45 mL, oral, Once, On 01/09/21 at 212 9, For 1 dose, Mix ingredients prior to administration sodium chloride 0.9 % injection 3 mL 3 mL, intravenous, Every 12 hours schedu led, First dose on 01/10/21 at 0900, Peripheral Intravenous Catheter and Rapid Infusion Catheter, when no infusion to maintain patency PRN Medication Order 01/08/2021 01/09/2021 01/10/2021 aspirin chewable tablet 324 mg (COMPLETED) 2117 (Given - Provider: Gricelda Bethea R.N.) 324 mg, oral, Once as needed, other, noah st pain; if not given within 4 hours, Starting on 01/09/21 at 2113, For 1 dose sodium chloride 0.9 % injection 10 mL 10 mL, intravenous, As needed, line care , Starting on 01/09/21 at 2113, Peripheral Intravenous Catheter and Rapid Infusion Catheter, prior to blood sampling, post blood transfusion or post blood sampling sodium chloride 0.9 % injection 3 mL 3 mL, intravenous, As needed, line care, Starting on 01/09/21 at 2113, Prior to and following infusion and between multiple consecutive infusions: sodium chloride 0.9 % injection documented in this encounter Care Teams Engineering Department Chair Relationship Specialty Start Date End Date Elsewhere, Pcp PCP - General Family Medicine 01/09/21 documented as of this encounter
--- OUTSIDE RECORDS SUMMARY | 2022-04-01 20:51 | XMS_ITS | Encounter Summary ---
:1955 Author Organization [facility] Address [address] [place] [address] Care Team Providers Name Role Phone Elsewhere, Pcp Primary Care Provider Unavailable Encounter Details Date Type Department Care Team Description 10/28/2021 Orders Only [facility] Sidney Vaughan [place] M.D. [address] [address], [place] [place] [id number] [phone] Social History Tobacco Use Types Packs/Day Years [...] on filedocumented in this encounter Care Teams Soaping Machine Back Tender Relationship Specialty Start Date End Date Elsewhere, Pcp PCP - General Family Medicine 01/09/21 documented as of this encounter
--- OUTSIDE RECORDS SUMMARY | 2022-04-01 20:51 | XMS_ITS | Encounter Summary ---
:1955 Author Organization [facility] Address [address] [place] [address] Care Team Providers Name Role Phone Elsewhere, Pcp Primary Care Provider Unavailable Reason for Visit Reason Comments Hypertension with chest pressure Encounter Details Date Type Department Care Team Description 03/25/2021 - Emergency Tracy Abilio Ac, Palpitations (P rimary 03/26/2021 Emergency Department C.N.P. Dx) [id number] [place] [id number] [phone] Social History Tobacco Use Types Packs/Day Years [...] Pulse 77 03/26/2021 12:00 AM CDT Temperature - - Respiratory Rate 18 03/26/2021 12:00 AM CDT Oxygen Saturation 98% 03/26/2021 12:00 AM CDT Inhaled Oxygen Concentration - - Weight 85.6 kg (188 lb 11.4 oz) 03/25/2021 10:46 PM CDT Height - - Body Mass Index 32.94 01/09/2021 9:04 PM CDT documented in this encounter Discharge Instructions Discharge InstructionsAbilio Ac, C.N.P. 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 Regarding your blood pressure, I do recommend a daily blood pressure log for the next 2 weeks and then show it to your provider to consider adjustment as necessary. Return to the emergency department if you have fever, chills, DVT with breathing, chest pain, sweating, loss of conscious, or worsening symptoms. AttachmentsThe following attachments cannot be sent through Care Everywhere. Palpitations (Liberian)documented in this encounter Medications at Time of Discharge Medication Sig Dispensed Refills Start Date End Date calcium citrate 250 mg Take 500 mg by 0 1 calcium tablet mouth. cholecalciferol (Vitamin Take 2,000 mcg by 0 D3) 50 mcg (2,000 Unit) mouth daily. tablet coenzyme Q10 200 mg/gram Take by mouth. 0 021 powder gabapentin (NEURONTIN) 300 Take 300 mg by 0 mg capsule mouth at bedtime. levothyroxine (Synthroid) Take by mouth. 0 2018 75 mcg tablet lisinopriL Take 5 mg by mouth 0 (PRINIVIL,ZESTRIL) 5 mg 2 (two) times a tablet day. multivitamin capsule Take 1 capsule by 0 mouth daily. omega 1-vqh-nig-fish oil Take by mouth. 0 016 1,200 (144-216) mg capsule omeprazole (PriLOSEC) 20 Take [address] mg [address] capsule mouth every morning before breakfast. verapamiL (VERELAN PM) 100 Take 100 mg by 0 03/22 mg 24 hr capsule mouth daily. flecainide (TAMBOCOR) 50 Take 50 mg by 0 mg tablet mouth every 12 (twelve) hours. flecainide (TAMBOCOR) 50 TAKE 1 TABLET BY 180 tablet 2 10/29 mg tablet MOUTH EVERY 12 HOURS verapamiL (VERELAN PM) 100 TAKE 1 CAPSULE BY 90 capsule 0 mg 24 hr capsule MOUTH AT BEDTIME predniSONE (DELTASONE) 20 TAKE 1 TABLET BY 5 tablet 0 12/2401/06/2022 mg tablet MOUTH DAILY FOR 5 DAYS documented as of this encounter ED Notes Jackie Antoine R.N. - 03/25/2021 11:01 PM CDT Patient states she has what she calls fullness in her chest. Patient states it is not painful, but it feels full and does cause SOB and feels like a bird is trying to get out of my chest. Patient states she was going up her stairs this evening when she started to feel fullness in her neck, and chest. At this time the patient sat down and waited a bit then took her BP. Patient stated her BP 181/110.Patient did state she stopped taking her lisinopril per her providers orders however this evening she did take one 5mg tab because her BP was elevated. Patient also has had a change in her other medications such as a stop in her flecainide and switched to verapamil this past Monday. Provider notified. Jackie Antoine R.N. 03/25/21 [id number] Abilio Ac C.N.P. 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 female with history hyperlipidemia who presents to the ED concerning for palpitation. Patient reports today around 2:30 p.m. she developed an episode that she described as a fullness to the substernal chest. This lasts for couple minutes and went away. She reports she was recently switch from flexion new to diltiazem for her arrhythmia. She also endorse having shortness of breath today as well. She denies any fever, chills, back pain, or abdominal pain. REVIEW OF SYSTEMS Constitutional: Negative for chills and fever. HENT: Negative for facial swelling. Eyes: Negative for alex-orbital edema. Respiratory: Positive for shortness of breath. Negative for cough. Cardiovascular: Positive for chest pain. Negative for leg swelling. Gastrointestinal: Negative for abdominal pain, diarrhea, nausea and vomiting. Genitourinary: Negative for dysuria, flank pain, frequency and urgency. Musculoskeletal: Negative. Skin: Negative. Negative for pallor. Neurological: Negative. Psychiatric/Behavioral: Negative. Negative for hallucinations, homicidal ideas and suicidal ideas. All other systems reviewed and are negative. OBJECTIVE Initial Vitals Temp Pulse Rate Heart Rate Resp Rate Blood Pressure SpO2 -- 03/25/21222903/25/21222903/25/21222903/25/21222903/25/212229 71 71 16 (!) 171/106 97 % Pain Score 03/25/21 2246 0 - No pain PHYSICAL EXAMINATION Constitutional: Nursing note and vitals reviewed. She appears not lethargic. No distress. HENT: Head: Normocephalic. No signs of injury. Nose: Nose normal. Mouth/Throat: Mucous membranes are moist. Eyes: Conjunctivae and EOM are normal. Neck: Neck supple. Cardiovascular: Normal heart sounds. A regularly irregular rhythm present. Tachycardia present. Capillary refill: takes less than 3 seconds, Pulmonary/Chest: Effort normal and breath sounds normal. Abdominal: Soft. Bowel sounds are normal. There is no abdominal tenderness. Musculoskeletal: General: Normal range of motion. Cervical back: Normal range of motion and neck supple. Neurological: Alert and oriented to person, place, and time. Skin: Skin is warm and dry. She is not diaphoretic. Psychiatric: She has a normal mood and affect. ASSESSMENT/PLAN IMPRESSION AND PLAN Differential diagnoses includes but is not limited to: thyroid abnormalities, arrhythmia, prolonged QT, brugada, HCOM, ARVD, ACS, sepsis, metabolic abnormalities, SVT, atrial fibrillation, pulmonary embolism, ventricular tachycardia, ventricular fibrillation, and others considered. EKG shows no evidence of prolonged QT, Brugada, HCOM, ARVD, VT, or VF. Reassuring blood work. Low suspicion for sepsis at this time. Negative D-dimer so suspicion for acute pulmonary embolism at this time. No electrolyte abnormality noted. After considering the context of the patient's history, exam, and diagnostic results, my impression is??palpitation. Plan: Discharged home with recommendation she follow up with Cardiology all of primary care providers next week for further evaluation as needed. Advised on strict return precautions. She states understanding. I personally reviewed the lab result(s) and my interpretation is normal. I personally reviewed the radiology image(s). The Radiology exam interpretation(s) is/are normal. I independently reviewed the ECG tracing and my interpretation is normal. ED Course as of Mar 25 2351 Evelia Mar 25, 2021 2316 Reassuring EKG. Patient denies any chest pain. Given symptoms has been more than 6 hours and given that she is pain-free at the moment, low suspicion for ACS. Troponin T, Baseline, 5th gen: <6 2333 TSH, Sensitive, P(!): 4.9 Final Diagnoses: as of Mar 25 2351 Palpitations Abilio Ac C.N.P. 03/25/212350 documented in this encounter Plan of Treatment Not on filedocumented as of this encounter Procedures Procedure Name Priority Date/Time Associated Comments Diagnosis DX CHEST PORTABLE 1 RAD - Routine 03/25/2021 11:27 Res ults for this VIEW (most inpatients PM CDT procedure a re in and all the results outpatients) section. TROPONIN T, STAT 03/25/2021 10:55 Results for this BASELINE, 5TH GEN, PM CDT procedure are in P the results section. HEPATIC FUNCTION STAT 03/25/2021 10:49 Results for this PANEL, S PM CDT procedure are i n the results section. NT-PRO B-TYPE STAT 03/25/2021 10:49 Results fo r this NATRIURETIC PEPTIDE PM CDT procedur e are in (BNP), S the results section. PROTHROMBIN TIME STAT 03/25/2021 10:49 Results for this (PT), P PM CDT procedure are i n the results section. D-DIMER, P STAT 03/25/2021 10:49 Results for this PM CDT procedure are i n the results section. CBC WITHOUT STAT 03/25/2021 10:49 Results for this DIFFERENTIAL, B PM CDT procedure ar e in the results section. THYROID-STIMULATING STAT 03/25/2021 10:49 Resu lts for this HORMONE-SENSITIVE PM CDT procedure are in (S-TSH) the results section. LIPASE, S/P STAT 03/25/2021 10:49 Results for this PM CDT procedure are i n the results section. BASIC METABOLIC STAT 03/25/2021 10:49 Results for this PANEL, S/P PM CDT procedure are i n the results section. ECG STAT 03/25/2021 10:33 Results for this PM CDT procedure are i n the results section. documented in this encounter Results DX Chest Portable 1 View (03/25/2021 11:27 PM CDT) Anatomical Region Laterality Modality Chest, Thoracic RST LOS, Thoracic ARZ LOS, Thoracic N/A Computed Radiography FLA LOS Specimen (Source) Anatomical Collection Method Collection Time Re ceived Time Location / / Volume Laterality 03/25/2021 11:49 PM CDT Impressions 03/25/2021 11:51 PM CDT Normal heart size. Mild calcification of the aortic arch. Subsegmental atelectasis at the right teressa ng base near the costophrenic sulcus. No consolidation, pleural effusion, or pneu mothorax. No other concerning change from 01/09/2021. Narrative 03/25/2021 11:51 PM CDT EXAM: DX CHEST PORTABLE 1 VIEW Procedure Note Shreyas Hayes M.D. - 03/25/2021Formatt ing of this note might be different from the original. EXAM: DX CHEST PORTABLE 1 VIEW IMPRESSION: Normal heart size. Mild calcification of the aortic arch. Subsegmental atelectasis at the right teressa ng base near the costophrenic sulcus. No consolidation, pleural effusion, or pneu mothorax. No other concerning change from 01/09/2021. Abilio Ac C.N.P. IMG DIAGNOSTIC IMAGING PROCE BEN Troponin T, Baseline, 5th gen (03/25/2021 10:55 PM CDT) P athologist Signature Troponin T, <6 <=10 ng/L 03/25/2021 CNFL Baseline, 5th 11:15 PM CDT gen Comment: Biotin has been identified by the debra sanchezurer as a potential interfering substance. ??Higher concentr ations of biotin may be found in multivitamins, hair/nail supple ments, and workout supplements. ??If the result does not ma [facility] clinical observations, repeat testing after patient refrains fr om the use of supplements for at least 12 hours. Specimen Anatomical Collection Method Collection Time Receive d Time (Source) Location / / Volume Laterality Blood (Blood, 03/25/2021 10:55 03/25/2021 Venous) PM CDT 10:55 PM CDT Abilio Ac C.N.P. LAB BLOOD TROPONIN Performing Organization Address City/State/ZIP Code Phon e Number [address] [address] [place] [address] [address] (ABNORMAL) S-TSH (Thyroid-Stimulating Hormone - Sensitive) (03/25/2021 10:49 PM CDT) P athologist Signature TSH, Sensitive 4.9 (H) 0.3 - 4.2 03/25/2021 CNFL mIU/L 11:30 PM CDT Specimen Anatomical Collection Method Collection Time Receive d Time (Source) Location / / Volume Laterality Blood (Blood, 03/25/2021 10:49 03/25/2021 Venous) PM CDT 10:52 PM CDT Abilio Ac C.N.P. LAB BLOOD ADD-ON Performing Organization Address City/State/ZIP Code Phon e Number [address] [address] [place] [address] System in [address] Hepatic Function Panel (03/25/2021 10:49 PM CDT) Patholo gist Method Time Signature Bilirubin, Total, P 0.2 <=1.2 03/25/2021 CNFL mg/dL 11:16 PM CDT Bilirubin, Direct, P <0.2 0.0 - 0.3 03/25/2021 CNFL mg/dL 11:16 PM CDT Aspartate 23 8 - 43 03/25/2021 CNFL Aminotransferase U/L 11:16 PM CDT (AST), P Alanine 20 7 - 45 03/25/2021 CNFL Aminotransferase U/L 11:16 PM CDT (ALT), P Alkaline 93 35 - 104 03/25/2021 CNFL Phosphatase, P U/L 11:16 PM CDT Albumin, P 4.5 3.5 - 5.0 03/25/2021 CNFL g/dL 11:16 PM CDT Protein, Total, P 7.7 6.3 - 7.9 03/25/2021 CNFL g/dL 11:16 PM CDT Specimen Anatomical Collection Method Collection Time Receive d Time (Source) Location / / Volume Laterality Blood (Blood, 03/25/2021 10:49 03/25/2021 Venous) PM CDT 10:52 PM CDT Abilio Ac C.N.P. LAB BLOOD ADD-ON Performing Organization Address City/State/ZIP Code Phon e Number [address] [address] [place] [address] System [address] D-Dimer (03/25/2021 10:49 PM CDT) P athologist Signature D-Dimer, P 251 <=500 ng/mL 03/25/2021 CNFL FEU 11:12 PM CDT Comment: ----ADDITIONAL INFORMATION---- D-dimer values less than or equal to 500 ng/mL fibrinogen equivalent units (FEU) may be used in co njunction with clinical pre-test probability to exclude deep vein thrombosis (DVT) and/or pulmonary emboli sm (PE). Specimen Anatomical Collection Method Collection Time Receive d Time (Source) Location / / Volume Laterality Blood (Blood, 03/25/2021 10:49 03/25/2021 Venous) PM CDT 10:52 PM CDT Abilio VerdePTahira LAB BLOOD ADD-ON Performing Organization Address City/State/[facility] [[email or web address]] Code Phon e Number [address] [address] [place] [address] System [address] Prothrombin Time (PT) (03/25/2021 10:49 PM CDT) P athologist Signature Prothrombin 11.4 9.4 - 12.5 03/25/2021 CNFL Time, P sec 11:11 PM CDT INR 1.0 0.9 - 1.1 03/25/2021 CNFL 11:11 PM CDT Comment: ----ADDITIONAL INFORMATION---- Standard intensity warfarin therapeutic range: 2.0 to 3.0 ?? High intensity warfarin therapeutic rang e: 2.5 to 3.5 Specimen Anatomical Collection Method Collection Time Receive d Time (Source) Location / / Volume Laterality Blood (Blood, 03/25/2021 10:49 03/25/2021 Venous) PM CDT 10:52 PM CDT Abilio Martin.N.P. LAB BLOOD ADD-ON Performing Organization Address City/[facility] [[email or web address]] Code Phon e Number [facility]- [address] [place] [address] [address] [place] [address] [place] [address] [address] [place] [address] [address] CBC without Differential (03/25/2021 10:49 PM CDT) P athologist Signature Hemoglobin 13.3 11.6 - 03/25/2021 CNFL 15.0 g/dL 10:56 PM CDT Hematocrit 39.6 35.5 - 03/25/2021 CNFL 44.9 % 10:56 PM CDT Erythrocytes 4.53 3.92 - 03/25/2021 CNFL 5.13 10:56 PM CDT x10(12)/L MCV 87.4 78.2 - 03/25/2021 CNFL 97.9 fL 10:56 PM CDT RBC Distrib Width 12.6 12.2 - 03/25/2021 CNFL 16.1 % 10:56 PM CDT Platelet Count 238 157 - 371 03/25/2021 CNFL x10(9)/L 10:56 PM CDT Leukocytes 7.7 3.4 - 9.6 03/25/2021 CNFL x10(9)/L 10:56 PM CDT Specimen Anatomical Collection Method Collection Time Receive d Time (Source) Location / / Volume Laterality Blood (Blood, 03/25/2021 10:49 03/25/2021 Venous) PM CDT 10:52 PM CDT Abilio Martin.N.P. LAB BLOOD ADD-ON Performing Organization Address City/State/ZIP Code Phon e Number [facility]- [address] [place] [address] [address] [place] [address] [place] [address] System in [place] [address] [address] Lipase (03/25/2021 10:49 PM CDT) P athologist Signature Lipase, P 44 13 - 60 U/L 03/25/2021 CNFL 11:16 PM CDT Specimen Anatomical Collection Method Collection Time Receive d Time (Source) Location / / Volume Laterality Blood (Blood, 03/25/2021 10:49 03/25/2021 Venous) PM CDT 10:52 PM CDT Abilio EspinosaN.P. LAB BLOOD ADD-ON Performing Organization Address City/[facility] Phon e Number [address] [address] [place] [address] NT-Pro B-Type Natriuretic Peptide (BNP) (03/25/2021 10:49 PM CDT) athologist Signature NT-Pro BNP 34 <=193 pg/mL 03/25/2021 CNFL 11:30 PM CDT Comment: NT-proBNP values less than 300 pg/mL hav e a 99% negative predictive value for excluding acute congestive heart koki lure. A cutoff of 1200 pg/mL for patients with an eGFR<60 yields a diagno stic sensitivity and specificity of 89% and 72% for acute congestive heart f ailure. ??A diagnostic NT-proBNP cutoff of 900 pg/mL has been suggested i n adults 50-75 years of age in the absence of renal failure. Biotin has been identified by the debra torres as a potential interfering substance. ??Higher concentr ations of biotin may be found in multivitamins, hair/nail supple ments, and workout supplements. ??If the result does not ma [facility] clinical observations, repeat testing after patient refrains fr om the use of supplements for at least 12 hours. Specimen Anatomical Collection Method Collection Time Receive d Time (Source) Location / / Volume Laterality Blood (Blood, 03/25/2021 10:49 03/25/2021 Venous) PM CDT 10:52 PM CDT Abilio Martin.N.P. LAB BLOOD ADD-ON Performing Organization Address City/[facility] [[email or web address]] Code Phon e Number [address] [address] [place] [address] [address] Basic Metabolic Panel (03/25/2021 10:49 PM CDT) P athologist Signature Potassium, P 3.9 3.6 - 5.2 03/25/2021 CNFL mmol/L 11:16 PM CDT Sodium, P 138 135 - 145 03/25/2021 CNFL mmol/L 11:16 PM CDT Chloride, P 103 98 - 107 03/25/2021 CNFL mmol/L 11:16 PM CDT Bicarbonate, P 26 22 - 29 03/25/2021 CNFL mmol/L 11:16 PM CDT Anion Gap, P 9 7 - 15 03/25/2021 CNFL 11:16 PM CDT BUN (Blood Urea 17 6 - 21 03/25/2021 CNFL Nitrogen), P mg/dL 11:16 PM CDT Creatinine 0.77 0.59 - 03/25/2021 CNFL 1.04 mg/dL 11:16 PM CDT eGFR-Black/Afric >90 >=60 03/25/2021 CNFL an Turkmen mL/min/BSA 11:16 PM CDT Comment: ----ADDITIONAL INFORMATION---- Estimated GFR calculated using the 2009 CKD_EPI creatinine equation. eGFR Non-Black/ 81 >=60 mL/min/BSA 03/25/2021 11:16 PM CDT CNFL Comment: ----ADDITIONAL INFORMATION---- Estimated GFR calculated using the 2009 CKD_EPI creatinine equation. Calcium, Total, P 9.6 8.8 - 10.2 mg/dL 03/25/2021 11:1 6 PM CDT CNFL Glucose, P 95 70 - 140 mg/dL 03/25/2021 11:16 PM CDT CNFL Specimen Anatomical Collection Method Collection Time Receive d Time (Source) Location / / Volume Laterality Blood (Blood, 03/25/2021 10:49 03/25/2021 Venous) PM CDT 10:52 PM CDT Abilio EspinosaNFranco LAB BLOOD ADD-ON Performing Organization Address City/State/ZIP Code Phon e Number [facility]- [address] [place] [address] [facility] [place] [address] [address] ECG 12 Lead (03/25/2021 10:33 PM CDT) P athologist Signature Ventricular Rate 63 BPM MUSE ECG/Min DC Interval 194 ms MUSE QRSD Interval 78 ms MUSE QT Interval 424 ms MUSE QTC Interval 433 ms MUSE P [place] 38 degrees MUSE R [place] 18 degrees MUSE T Wave [place] 70 degrees MUSE Specimen Anatomical Collection Method Collection Time Receive d Time (Source) Location / / Volume Laterality 03/25/2021 10:33 03/25/2021 PM CDT 10:42 PM CDT Impressions MUSE - 03/25/2021 10:42 PM CDT Normal sinus rhythm Nonspecific ST abnormality When compared with ECG of 09-JAN-2021 21 :14, No significant change was found Reviewed by ABBEY Sarkar Narrative This result has an attachment that is no t available. Procedure Note Donnell Bautista M.D. - 03/25/2021Form atting of this note might be different from the original. IMPRESSION: Normal sinus rhythm Nonspecific ST abnormality When compared with ECG of 09-JAN-2021 21 :14, No significant change was found Reviewed by ABBEY Sarkar Knox N Ac C.N.P. ECG ORDERABLES Performing Organization Address City/State/ZIP Code Phon e Number MUSE MUSE NA documented in this encounter Visit Diagnoses Diagnosis Palpitations - Primary documented in this encounter Care Teams Manager Post Relationship Specialty Start Date End Date Elsewhere, Pcp PCP - General Family Medicine 01/09/21 documented as of this encounter
--- OUTSIDE RECORDS SUMMARY | 2022-04-01 20:51 | XMS_ITS | Encounter Summary ---
:1955 Author Organization [facility] Address [address] [place] [address] Care Team Providers Name Role Phone Elsewhere, Pcp Primary Care Provider Unavailable Encounter Details Date Type Department Care Team Description 02/14/2022 Orders Only [facility] Salvatore Forte M.D. [place] [address] [address] [place], [place] [phone] Social History Tobacco Use Types Packs/Day Years [...] on filedocumented in this encounter Care Teams Model Maker Plaster Relationship Specialty Start Date End Date Elsewhere, Pcp PCP - General Family Medicine 01/09/21 documented as of this encounter
--- OUTSIDE RECORDS SUMMARY | 2022-04-01 20:51 | XMS_ITS | Encounter Summary ---
:1955 Author Organization [facility] Address [address] [place] [address] Care Team Providers Name Role Phone Elsewhere, Pcp Primary Care Provider Unavailable Encounter Details Date Type Department Care Team Description 11/23/2021 Orders Only [facility] Mary Owen [place] M.D. [address] [id number] [phone] Social History Tobacco Use Types Packs/Day Years [...] on filedocumented in this encounter Care Teams Pork Cutlet Maker Relationship Specialty Start Date End Date Elsewhere, Pcp PCP - General Family Medicine 01/09/21 documented as of this encounter
--- OUTSIDE RECORDS SUMMARY | 2022-04-01 20:51 | XMS_ITS | Encounter Summary ---
:1955 Author Organization [facility] Address [address] [place] [address] Care Team Providers Name Role Phone Elsewhere, Pcp Primary Care Provider Unavailable Encounter Details Date Type Department Care Team Description 06/30/2021 Orders Only [facility] Jeffery Kent M.D. [address] [address] [place], [place] [phone] (W ork) [phone] [phone] Social History Tobacco Use Types Packs/Day Years [...] on filedocumented in this encounter Care Teams Research Staff Member Relationship Specialty Start Date End Date Elsewhere, Pcp PCP - General Family Medicine 01/09/21 documented as of this encounter
--- OUTSIDE RECORDS SUMMARY | 2022-04-01 20:51 | XMS_ITS | Encounter Summary ---
:1955 Author Organization [facility] Address [address] [place] [address] Care Team Providers Name Role Phone Elsewhere, Pcp Primary Care Provider Unavailable Encounter Details Date Type Department Care Team Description 03/19/2021 Orders Only [facility] Brandon [place] M.D. [address] [phone] [place] [address] [phone] (Wo rk) Social History Tobacco Use Types [...] on filedocumented in this encounter Care Teams Certified Coder Relationship Specialty Start Date End Date Elsewhere, Pcp PCP - General Family Medicine 01/09/21 documented as of this encounter
--- OUTSIDE RECORDS SUMMARY | 2022-04-01 20:51 | XMS_ITS | Encounter Summary ---
:1955 Author Organization [facility] Address [address] [place] [address] Care Team Providers Name Role Phone None Reported, Pcp Primary Care Provider Unavailable Reason for Visit Reason Comments Rash Encounter Details Date Type Department Care Team Description 01/06/2021 Emergency [place] Piero Moy, Dermatitis (Primary Dx) Department P.A.-C. [address] [place] [address] [place] [phone] Social History Tobacco Use Types Packs/Day Years Used Date Smoking Tobacco: Never Smokeless Tobacco: Never Sex Assigned at Date Recorded Not on file documented as of this encounter Last Filed Vital Signs Vital Sign Reading Time Taken Comments Blood Pressure 134/84 01/06/2021 9:28 AM CDT Pulse 64 01/06/2021 9:28 AM CDT Temperature 36.8 ??C (98.2 ??F) 01/06/2021 9:28 AM CDT Respiratory Rate 18 01/06/2021 9:28 AM CDT Oxygen Saturation 97% 01/06/2021 9:28 AM CDT Inhaled Oxygen Concentration - - Weight 87.1 kg (192 lb 0.3 oz) 01/06/2021 9:30 AM CDT Height - - Body Mass Index - - documented in this encounter Discharge Instructions Discharge InstructionsPiero Moy, P.A.-C. - 01/06/2021 9:49 AM CDT Use the prednisone to help with the itchiness. You can try Zyrtec also. Stop using anything that hasbeen in contact with her scalp recently. Try not to scratch her scalp. Follow-up in clinic if this continues. AttachmentsThe following attachments cannot be sent through Care Everywhere. Contact Dermatitis (Yemeni)documented in this encounter Medications at Time of Discharge Medication Sig Dispensed Refills Start Date End Date cholecalciferol (Vitamin Take 2,000 mcg by 0 D3) 50 mcg (2,000 Unit) mouth daily. tablet flecainide (TAMBOCOR) 50 Take 50 mg by 0 mg tablet mouth every 12 (twelve) hours. gabapentin (NEURONTIN) 300 Take 300 mg by 0 mg capsule mouth at bedtime. lisinopriL Take 5 mg by mouth 0 (PRINIVIL,ZESTRIL) 5 mg 2 (two) times a tablet day. multivitamin capsule Take 1 capsule by 0 mouth daily. omeprazole (PriLOSEC) 20 Take 20 mg by [address] capsule mouth every morning before breakfast. calcium citrate 250 mg Take 500 mg by 0 1 calcium tablet mouth. coenzyme Q10 200 mg/gram Take by mouth. 0 021 powder flecainide (TAMBOCOR) 50 TAKE 1 TABLET BY 180 tablet 2 10/29 mg tablet MOUTH EVERY 12 HOURS levothyroxine (Synthroid) Take by mouth. 0 2018 75 mcg tablet omega 9-[id number]-ukd-fish oil Take by mouth. 0 016 1,200 (144-216) mg capsule predniSONE (DELTASONE) 20 TAKE 1 TABLET BY 5 tablet 0 12/2401/06/2022 mg tablet MOUTH DAILY FOR 5 DAYS documented as of this encounter ED Notes Piero Moy P.A.-C. 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 She has noticed itchiness and bumps throughout her scalp for the past 2 days. The itchiness is throughout her whole scalp and no where else on her body. She states that she feels small bumps also. She does not have any other symptoms. She has used a new shampoo and body wash over the past month. She occasionally uses conditioner and nothing else is in contact with her scalp. She is not aware of any insect bites that may have caused this. No one else in her house has similar symptoms. She has not had this problem in the past. She denies any other complaints. REVIEW OF SYSTEMS Constitutional: Negative. HENT: Negative. Respiratory: Negative. Cardiovascular: Negative. Gastrointestinal: Negative. Musculoskeletal: Negative. Skin: Positive for itching and rash. Neurological: Negative. OBJECTIVE Initial Vitals Temperature Pulse Rate Heart Rate Resp Rate Blood Pressure SpO2 01/06/2128 01/06/21927 -- 01/06/2192701/06/2192701/06/21927 36.8 ??C 64 18 134/84 97 % Pain Score 01/06/21929 0 - No pain PHYSICAL EXAMINATION Constitutional: Nursing note and vitals reviewed. Vital signs are normal. She is cooperative. No distress. HENT: Head: Normocephalic and atraumatic. Hair is normal. Eyes: Conjunctivae and lids are normal. Periorbital area normal appearing. Neck: Phonation normal. Cardiovascular: Normal rate. Pulmonary/Chest: Effort normal. No respiratory distress. Musculoskeletal: Cervical back: No pain with movement. Neurological: Alert and oriented to person, place, and time. Normal speech. Skin: Skin is warm, dry and normal color. Rash noted. No lesion noted. Rash is macular. Rash is not nodular, not pustular, not vesicular, not urticarial, not scaling, not crusting, not raised and not tender. No pallor. Scalp - numerous faint macular lesions throughout the scalp that are not pustular or vesicular in nature. Some excoriation noted. No crusting or drainage. Psychiatric: She has a normal mood and affect. Speech pattern is normal. Relaxed. 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 She has had itchiness and bumps throughout her scalp for 2 days. She is unaware of any known causes. She has not had this problem in the past. On my exam there is no obvious evidence for shingles, tinea, lice, or other bug bites. There is a faint macular rash with some excoriation throughout her scalp. There is no obvious flaking. She has a sensitivity to Benadryl. I gave her a prescription for prednisone mainly for symptomatic relief of the itching. She will also attempt a type 2 antihistamine such as Zyrtec. I also recommended that she stop using her hair care products. She will come back if she develops any ne w symptoms or her symptoms worsen. DIFFERENTIAL DIAGNOSIS Dermatitis, lice, shingles, tinea, bug bites, allergic reaction Final Diagnoses: as of Jan 06 951 Dermatitis Piero Moy P.A.-C. 01/06/21 [address] Nova Steven R.N. - 01/06/2021 9:30 AM CDT Pt presents to ED with c/o itchy bumps on scalp since Monday. Pt reports she showered last night and washed her hair and itching increased. Hypersensitive to antihistamines. Denies new shampoos or hair products. No pain, diarrhea, nausea, vomiting, chills Nova Steven R.N. 01/06/21 0931 Nova Steven R.N. 01/06/21 0932 documented in this encounter Plan of Treatment Not on filedocumented as of this encounter Visit Diagnoses Diagnosis Dermatitis - Primary documented in this encounter Care Teams Suit Attendant Relationship Specialty Start Date End Date None Reported, Pcp PCP - General Family Medicine 01/06/21 documented as of this encounter
--- OUTSIDE RECORDS SUMMARY | 2022-04-01 20:52 | XMS_ITS | Encounter Summary ---
:1955 Author Organization [facility] Address [address] [place] [id number] Care Team Providers Name Role Phone Elsewhere, Pcp Primary Care Provider Unavailable Reason for Referral Specialty Diagnoses / Procedures Referred By Contact Refer red To Contact Eve Gonzalez M.D. [facility] [address] [place] [phone] Referral ID Status Reason Start Date Expiration Date Visits Requ ested Visits Authorized Encounter Details Date Type Department Care Team Description 04/21/2021 Orders Only RST PCP [facility] Eve Gonzalez M.D. [address] [place], [place] [phone] (Wo rk) Social History Tobacco Use Types Packs/Day Years Used Date Smoking Tobacco: Never Smokeless Tobacco: Never Alcohol Use Standard Drinks/Week Comments Not Currently 0 (1 standard drink = 0.6 oz pure alcoho l) Sex Assigned at Date Recorded Not on file documented as of this encounter Plan of Treatment Scheduled Referrals Name Type Priority Associated Order Schedule Diagnoses Covid immunization Outpatient Referral Routine Ex pected: office visit Booster 021 (Approximate), Expires: 04/21/2022 documented as of this encounter Visit Diagnoses Not on filedocumented in this encounter Care Teams Concaver Relationship Specialty Start Date End Date Elsewhere, Pcp PCP - General Family Medicine 01/09/21 documented as of this encounter
[2022-04-01 20:59] VITALS: BP 154/80; PULSE 79; RESP 18; TEMP 36.6; O2SAT 99
[2022-04-01 21:00] VITALS: BP 154/80; PULSE 79; RESP 18; TEMP 36.6
== END 2022-04-01 21:00 | disposition home or self-care (01) ==
PROVIDERS: Emergency Provider Internal Medicine
DX: J32.9 Chronic sinusitis, unspecified (principal)
CPT/HCPCS: 99283; 99284